=== PATIENT | female | born 1960 | race African-American/Black ===

== ENCOUNTER 2022-01-08 15:12 | Emergency (ER) | payer OTHER, SELFPAY ==
[2022-01-08 15:17] VITALS: BP 142/86; PULSE 101; RESP 18; TEMP 36.2; O2SAT 100
[2022-01-08 17:18] LABS: Add Urine Microscopic? YES; Appearance Urine Cloudy (Clear); Bacteria Urine 1+ /hpf; Bilirubin Urine Negative (Negative); Blood Urine 3+ (Negative); Color Urine Yellow (Yellow); Glucose Urine UA Negative (Negative); Ketones Urine Negative (Negative); Leukocyte Esterase Ur 3+ LEU/UL (Negative); Nitrate Urine Negative (Negative); Protein Urine Negative (Negative); RBC Urine >75 /hpf (0-2); Specific Grav Ur 1.009 (1.001-1.035); Squamous Epithelial Cell Urine Many /hpf (Few); Urobilinogen Urine Negative mg/dL (<2.0); WBC Urine >75 /hpf
--- NOTE | 2022-01-08 18:05 | ED.FEMALEGU ---
HPI - Female Genitourinary General Chief complaint: Urogenital-Female <Cecile Rdz APRN - Last Filed: 01/08/22 18:20> Stated complaint: ?bladder infection <Cecile Rdz IT BUSINESS PROCESS ARCHITECT - Last Filed: 01/08/22 18:20> Time Seen by Provider: 01/08/22 15:37 <Cecile Rdz IT BUSINESS PROCESS ARCHITECT - Last Filed: 01/08/22 18:20> Source: patient <Cecile Rdz IT BUSINESS PROCESS ARCHITECT - Last Filed: 01/08/22 18:20> History of Present Illness HPI Narrative: 61-year-old female presents today with complaints of urinary urgency, dysuria, and back pain. Patient states the back pain started yesterday all of the other symptoms started today. Patient denies any fever, chills, body aches, nausea, or vomiting. <Cecile Rdz IT BUSINESS PROCESS ARCHITECT - Last Filed: 01/08/22 18:20> Related Data Home medications: Home Medications Medication Instructions Recorded Confirmed hydrochlorothiazide 25 mg PO DAILY 01/08/22 lisinopril 30 mg PO DAILY 01/08/22 <Cecile Rdz IT BUSINESS PROCESS ARCHITECT - Last Filed: 01/08/22 18:20> Allergies/Adverse reactions: Allergies Allergy/AdvReac Type Severity Reaction Status Date / Time No Known Allergies Allergy Verified 01/08/22 15:38 <Cecile Rdz IT BUSINESS PROCESS ARCHITECT - Last Filed: 01/08/22 18:20> Review of Systems Constitutional: Constitutional: Reports as per HPI, Denies chills and Denies fatigue <Cecile Rdz APRN - Last Filed: 01/08/22 18:20> Eyes: Eyes: Reports as per HPI <Cecile Rdz IT BUSINESS PROCESS ARCHITECT - Last Filed: 01/08/22 18:20> Cardiovascular: Cardiovascular: Reports no additional cardiovascular complaints <Cecile Rdz IT BUSINESS PROCESS ARCHITECT - Last Filed: 01/08/22 18:20> Respiratory: Respiratory: Reports no additional respiratory complaints <Cecile Rdz IT BUSINESS PROCESS ARCHITECT - Last Filed: 01/08/22 18:20> Genitourinary: Genitourinary: Reports as per HPI, Reports hematuria, Reports nocturia and Reports dysuria <Cecile Rdz IT BUSINESS PROCESS ARCHITECT - Last Filed: 01/08/22 18:20> Musculoskeletal: Musculoskeletal: Reports back pain (sates it started yesterday, feels like she slept on it wrong) <Cecile Rdz APRN - Last Filed: 01/08/22 18:20> Neurologic: Reports system reviewed and no additional complaints, except as documented <Cecile Rdz APRN - Last Filed: 01/08/22 18:20> Psychiatric: Psychiatric: Reports no additional psychiatric complaints <Cecile Rdz APRN - Last Filed: 01/08/22 18:20> PMFSH Past Medical History Medical History: Medical History (Updated 01/08/22 @ 18:09 by Cecile Rdz APRN) HTN (hypertension) <Cecile Rdz APRN - Last Filed: 01/08/22 18:20> Exam Narrative: GENERAL: Well-appearing, well-nourished, and in no acute distress. HEAD: Normocephalic, atraumatic. EYES: PERRLA and EOMI. ENT: Nares clear, no rhinorrhea or epistaxis. Mucous membranes moist. NECK: Supple. No adenopathy or masses. No carotid bruits or JVD CHEST: Clear to auscultation. No respiratory distress. No wheezes rales or rhonchi HEART: Regular rate and rhythm. No murmur heard. Normal peripheral pulses. ABDOMEN: Soft, tender to pelvic region, nondistended, normal active bowel sounds, negative CVA tenderness EXTREMITIES: Normal range of motion. No edema. SKIN: Warm, dry, no rash. NEURO: No focal deficits. Alert and oriented x3. PSYCH: Normal mood and affect. <Cecile Rdz APRN - Last Filed: 01/08/22 18:20> Course TEST MANAGER/PA Physician Supervision I did not see this patient nor was the care plan discussed with me. I was available for evaluation and consultation, I agree with the documentation <Shane Duque MD - Last Filed: 01/08/22 18:43> Vital Signs Vital signs: Vital Signs Temperature 36.2 C L 01/08/22 15:17 Pulse Rate 101 H 01/08/22 15:17 Respiratory Rate 18 01/08/22 15:17 Blood Pressure 142/86 H 01/08/22 15:17 Pulse Oximetry 100 01/08/22 15:17 Temperature 36.2 C L 01/08/22 15:17 Pulse Rate 101 H 01/08/22 15:17 Respiratory Rate 18 01/08/22 15:17 Blood Pressure 142/86 H 01/08/22 15:17 Pulse Oximetry 100
[2022-01-08] MEDS: PHENAZOPYRIDINE HCL 100 MG TABLET 200 MG PO (18:17)
== END 2022-01-08 18:31 | disposition home or self-care (01) ==
PROVIDERS: Emergency Provider Nurse Practitioner Family
DX: N39.0 Urinary tract infection, site not specified (principal); I10 Essential (primary) hypertension
CPT/HCPCS: 81001; 87077; 87086; 87186; 99283; A9270